=== PATIENT | male | born 1990 | race Caucasian/White ===

== ENCOUNTER 2022-02-26 14:52 | Inpatient (IN) | payer SELFPAY ==
[2022-02-26 15:57] LABS: #Basophils 0.1 thou/uL (0.0-0.2); #Eosinphils 0.5 thou/uL (0.0-0.7); #Lymphocytes 4.1 thou/uL (1.20-3.40); #Monocytes 1.3 thou/uL (0.11-0.59); #Neutrophils 5.5 thou/uL (1.40-6.50); %Basophils 0.8 % (0.0-1.0); %Eosinophils 4.6 % (0.0-10.0); %Lymphocytes 35.6 % (21.0-51.0); %Monocytes 11.1 % (0.0-10.0); %Neutrophils 47.8 % (42.0-75.0); Hemoglobin 12.6 g/dL (14.0-18.0); Mean Corpuscular HGB CONC 32.9 g/dL (32.0-36.0); Mean Corpuscular Hemoglobin 30.4 pg (27.0-31.0); Mean Corpuscular Volume 92.3 fL (78.0-98.0); Platelet Count 430 thou/uL (130-400); RBC Distribution Width 12.5 % (11.5-14.5); Red Blood Cell (RBC) Count 4.16 mill/uL (4.70-6.10); White Blood Cell (WBC) Count 11.4 thou/uL (4.8-10.8)
[2022-02-26 16:23] LABS: ALT (SGPT) 13 U/L (8-55); AST (SGOT) 12 U/L (5-34); Albumin 3.8 g/dL (3.5-5.0); Alkaline Phosphatase 70 U/L (40-110); Anion Gap 13 mmol/L (10-20); BUN (Urea Nitrogen) 10 mg/dL (8.9-20.6); Bilirubin, Total 0.3 mg/dL (0.2-1.2); Calc. Creatinine Clearance 0 mL/min (70-130); Carbon Dioxide 27 mmol/L (22-29); Chloride 98 mmol/L (98-107); Estimated GFR 125; Globulin 2.7 g/dL (2.4-3.5); Glucose 79 mg/dL (70-105); Protein, Total 6.5 g/dL (6.0-8.3); Sodium 134 mmol/L (136-145)
[2022-02-26] MEDS ORDERED: Cefepime 2 GM VIAL ONE (16:26)
[2022-02-26] MEDS ORDERED: Acetaminophen 325 MG TAB PO PRN ×2 (17:07→19:00)
[2022-02-26] MEDS ORDERED: Clindamycin/D5W 600 mg/50 ml Premix Bag ONE (17:10)
[2022-02-26] MEDS ORDERED: INFANRIX 0.5 ML (DTaP) SYRINGE (PEDI) IM ONE (17:17)
[2022-02-26] MEDS ORDERED: Vancomycin 1 GM/200 ML BAG ONE (17:25)
[2022-02-26] MEDS ORDERED: Boostrix 0.5 ML (Tdap) VIAL (>/=7 yrs of age) IM ONE (17:30)
[2022-02-26] MEDS ORDERED: Pharmacy to Dose VANC AND CEFEPIME IVPB PRN ×2 (17:33→18:54)
[2022-02-26] MEDS ORDERED: HyperTET 250 UNITS/ML 1 ML SYRINGE IM ONE (18:08)
[2022-02-26] MEDS: Cefepime 1 GM in Sodium Chloride 0.9% 100 ML IVPB SCH ×2 (18:51→19:27)
[2022-02-26] MEDS ORDERED: Ondansetron ODT 4 MG TAB SL PRN (19:00)
[2022-02-26] MEDS ORDERED: Ondansetron PF 4 MG/2 ML Vial IVP PRN (19:00)
[2022-02-26 19:21] VITALS: BMI 25.7
[2022-02-26] MEDS: Lactated Ringer's 1,000 ML IV SCH (19:27)
[2022-02-26] MEDS: Acetaminophen 500 MG TAB PO SCH (19:28)
[2022-02-26] MEDS: Ibuprofen 600 MG TAB PO SCH (19:29)
[2022-02-26] MEDS ORDERED: Vancomycin 1 GM in Premix Bag 1 BAG IVPB SCH ×2 (20:00→21:00)
[2022-02-26] MEDS: VANCOMYCIN 1.25 GM/250 ML BAG 1.25 GM in Premix Bag 1 BAG IVPB SCH (20:12)
[2022-02-27 00:45] LABS: HIV (1/2) Antibody/Antigen Non-Reactive (NonReactive); HIV 1/2 INDEX 0.17 S/CO (<1.00); Hep C IgG Ab Non-Reactive (NonReactive); Hep C Index 0.05 S/CO (0-0.79)
[2022-02-27] MEDS: Ibuprofen 600 MG TAB PO SCH ×5 (00:55→23:08)
[2022-02-27] MEDS: Lactated Ringer's 1,000 ML IV SCH ×4 (00:55→23:13)
[2022-02-27] MEDS: Acetaminophen 500 MG TAB PO SCH ×3 (00:56→17:45)
[2022-02-27] MEDS: Cefepime 1 GM in Sodium Chloride 0.9% 100 ML IVPB SCH (05:30)
[2022-02-27] MEDS: VANCOMYCIN 1.25 GM/250 ML BAG 1.25 GM in Premix Bag 1 BAG IVPB SCH ×3 (06:08→23:09)
[2022-02-27 06:21] LABS: #Eosinphils 0.5 thou/uL (0.0-0.7); #Lymphocytes 3.1 thou/uL (1.20-3.40); #Monocytes 0.9 thou/uL (0.11-0.59); #Neutrophils 4.2 thou/uL (1.40-6.50); %Basophils 0.3 % (0.0-1.0); %Eosinophils 5.7 % (0.0-10.0); %Lymphocytes 35.6 % (21.0-51.0); %Monocytes 10.8 % (0.0-10.0); %Neutrophils 47.6 % (42.0-75.0); Hemoglobin 12.5 g/dL (14.0-18.0); Mean Corpuscular HGB CONC 32.3 g/dL (32.0-36.0); Mean Corpuscular Hemoglobin 29.7 pg (27.0-31.0); Platelet Count 409 thou/uL (130-400); RBC Distribution Width 12.4 % (11.5-14.5); White Blood Cell (WBC) Count 8.7 thou/uL (4.8-10.8)
[2022-02-27 06:37] LABS: Anion Gap 11 mmol/L (10-20); BUN (Urea Nitrogen) 9 mg/dL (8.9-20.6); Calc. Creatinine Clearance 205 mL/min (70-130); Calcium 8.6 mg/dL (7.8-10.44); Carbon Dioxide 26 mmol/L (22-29); Chloride 102 mmol/L (98-107); Estimated GFR 130; Glucose 76 mg/dL (70-105); Potassium 4.3 mmol/L (3.5-5.1); Sodium 135 mmol/L (136-145)
[2022-02-27] MEDS: Enoxaparin Sodium 40 MG/0.4 ML SYRINGE SC SCH (08:15)
[2022-02-27] MEDS ORDERED: Boostrix 0.5 ML (Tdap) VIAL (>/=7 yrs of age) IM ONE (11:39)
[2022-02-27] MEDS ORDERED: Adacel (T-DAP) 0.5 ML SYRINGE IM ONE (11:45)
[2022-02-27] MEDS ORDERED: HyperTET 250 UNITS/ML 1 ML SYRINGE IM ONE (14:15)
[2022-02-27] MEDS: Cefepime 2 GM in Sodium Chloride 0.9% 100 ML IVPB SCH (17:45)
[2022-02-27 21:56] LABS: Vancomycin, Trough 16.2 ug/mL
[2022-02-28] MEDS: Acetaminophen 500 MG TAB PO SCH ×3 (01:47→18:24)
[2022-02-28] MEDS: Ibuprofen 600 MG TAB PO SCH ×3 (05:07→18:24)
[2022-02-28] MEDS: Cefepime 2 GM in Sodium Chloride 0.9% 100 ML IVPB SCH ×2 (05:07→17:11)
[2022-02-28] MEDS: VANCOMYCIN 1.25 GM/250 ML BAG 1.25 GM in Premix Bag 1 BAG IVPB SCH ×3 (06:28→21:31)
[2022-02-28] MEDS: Enoxaparin Sodium 40 MG/0.4 ML SYRINGE SC SCH (07:53)
[2022-02-28] MEDS: Lactated Ringer's 1,000 ML IV SCH (09:42)
[2022-02-28 21:23] LABS: Vancomycin, Trough 15.9 ug/mL
[2022-03-01] MEDS: Ibuprofen 600 MG TAB PO SCH ×2 (00:29→05:58)
[2022-03-01] MEDS: Acetaminophen 500 MG TAB PO SCH ×2 (02:14→10:38)
[2022-03-01] MEDS: Cefepime 2 GM in Sodium Chloride 0.9% 100 ML IVPB SCH (04:53)
[2022-03-01] MEDS: VANCOMYCIN 1.25 GM/250 ML BAG 1.25 GM in Premix Bag 1 BAG IVPB SCH (05:58)
[2022-03-01] MEDS: Enoxaparin Sodium 40 MG/0.4 ML SYRINGE SC SCH (08:38)
[2022-03-01] MEDS ORDERED: Sulfameth/Trimethoprim DS 800-160mg TAB PO SCH ×2 (09:00)
[2022-03-01 09:48] VITALS: TEMP 98.2
[2022-03-01 11:49] VITALS: BP 159/99
== END 2022-03-01 11:51 | disposition home or self-care (01) | DRG 603 ==
LOC: ERS 14:52 → T4-A 18:01
PROVIDERS: ADMIT Student in an Organized Health Care Education/Training Program; ATTEND Student in an Organized Health Care Education/Training Program
DX: L03.115 Cellulitis of right lower limb (principal); F17.210 Nicotine dependence, cigarettes, uncomplicated; F15.10 Other stimulant abuse, uncomplicated; S92.901A Unspecified fracture of right foot, initial encounter for closed fracture; X58.XXXA Exposure to other specified factors, initial encounter; Z20.822 Contact with and (suspected) exposure to COVID-19; Y92.9 Unspecified place or not applicable
CPT/HCPCS: 36415; 76882; 80048; 80053; 80202; 82550; 83605; 85025; 86780; 86803; 87040; 87389; 90715; J0692; J1650; J3370; J3490; J7120; U0003; U0005

== ENCOUNTER 2024-07-31 16:13 | Emergency (ER) | payer SELFPAY ==
[2024-07-31 18:45] LABS: #Basophils 0.06 10x3/uL (0.0-0.2); %Basophils 0.8 % (0.0-1.0); %Eosinophils 6.1 % (0.0-10.0); %Lymphocytes 38.2 % (21.0-51.0); %Neutrophils 44.5 % (42.0-75.0); Hematocrit 46.3 % (42.0-52.0); Hemoglobin 15.1 g/dL (14.0-18.0); Mean Corpuscular HGB CONC 32.6 g/dL (32.0-36.0); Mean Corpuscular Hemoglobin 28.8 pg (27.0-31.0); Mean Corpuscular Volume 88.4 fL (78.0-98.0); Mean Platelet Volume 8.2 fL (7.4-10.4); Platelet Count 364 10x3/uL (130-400); RBC Distribution Width 13.8 % (11.5-14.5); Red Blood Cell (RBC) Count 5.24 mill/uL (4.70-6.10)
[2024-07-31 19:01] LABS: ALT (SGPT) 17 U/L (Less than 45); AST (SGOT) 22 U/L (11-34); Albumin 4.1 g/dL (3.1-4.5); Alkaline Phosphatase 75 U/L (40-110); Anion Gap 13 mmol/L (10-20); BUN (Urea Nitrogen) 14 mg/dL (8.9-20.6); Bilirubin, Total 0.3 mg/dL (0.3-1.2); Calc. Creatinine Clearance 0 mL/min (70-130); Calcium 9.3 mg/dL (7.8-10.44); Carbon Dioxide 24 mmol/L (22-29); Chloride 108 mmol/L (98-107); Estimated GFR 116; Globulin 3.2 g/dL (2.4-3.5); Glucose 92 mg/dL (70-105); Potassium 4.5 mmol/L (3.5-5.1); Protein, Total 7.3 g/dL (6.0-8.3); Sodium 140 mmol/L (136-145)
[2024-07-31 19:04] LABS: Troponin I Less than 0.010 ng/mL (< 0.028)
[2024-07-31] MEDS ORDERED: Ibuprofen 200 MG TAB ONE (20:21)
[2024-07-31] MEDS ORDERED: Metoclopramide HCl 10 MG TAB ONE (20:24)
== END 2024-07-31 21:17 | disposition home or self-care (01) ==
LOC: ERS 16:13
DX: G44.209 Tension-type headache, unspecified, not intractable (principal); I10 Essential (primary) hypertension; F17.200 Nicotine dependence, unspecified, uncomplicated
CPT/HCPCS: 36415; 71045; 80053; 84484; 85025; 93005